=== PATIENT | male | born 1960 | race Caucasian/White ===

== ENCOUNTER 2020-12-29 11:13 | Emergency (ER) | payer MEDICAID, SELFPAY ==
[2020-12-29] VITALS (12 sets, daily range): BP systolic 127–142; BP diastolic 65–92; PULSE 72–93; RESP 18–30; TEMP 36.6; O2SAT 93–98
--- NOTE | ~2020-12-29 | CT_ITS ---
EXAMINATION: CT abdomen pelvis w con DATE: 12/29/2020 13:08 INDICATION: Left flank pain. TECHNIQUE: Computed tomography (CT) of the abdomen and pelvis was performed with 100 mL Omnipaque 350 intravenous contrast. Automated exposure control and iterative reconstruction technique were employe d. The dose-length product was 1286.83 mGy-cm. COMPARISON: None. FINDINGS: The visualized portions of the lung bases demonstrate mild atelectasis. No pleural effusion . The heart size is normal. No pericardial effusion. There is mild wall thickening of the distal esop hagus. The liver and spleen are normal. There is a gallstone in the gallbladder, which is normal in s ize. The pancreas, adrenal glands, and kidneys are normal. The prostate is moderately enlarged. There is diverticulosis of the colon without evidence of diverticulitis. There are no dilated loops of bow el. The appendix is not visualized. There are no pathologically enlarged lymph nodes. There is no sunshine e intraperitoneal fluid. There is a small right inguinal hernia containing fat. There is fat strandin g at the root of the small bowel mesentery. There is severe lumbar spondylosis and moderate thoracic spondylosis. IMPRESSION: 1. Fat stranding at the root of the small bowel mesentery, consistent with edema versus inflammation/ scarring (mesenteric panniculitis). 2. Wall thickening of the distal esophagus, likely esophagitis. 3. Small right inguinal hernia containing fat. Reviewed, dictated and finalized at location A. IMPRESSION: 1. Fat stranding at the root of the small bowel mesentery, consistent with ethan a versus inflammation/scarring (mesenteric panniculitis). 2. Wall thickening of the distal esophagus, likely esophagitis. 3. Small right inguinal hernia containing fat.
--- NOTE | ~2020-12-29 | XR_ITS ---
XR chest 2V DATE: 12/29/2020 13:13 INDICATION: Dyspnea, cough TECHNIQUE: 2 views COMPARISON: None FINDINGS: Normal heart size. No hilar or mediastinal enlargement. No pulmonary infiltrate or consolidation, pleural effusion or pulmonary vascular congestion or pneumo thorax. 12 mm calcified gallstone overlying the upper anterior abdomen. Included skeletal structures are unremarkable. IMPRESSION: No active cardiopulmonary disease Cholelithiasis Reviewed, dictated and finalized at location B.
--- NOTE | 2020-12-29 11:21 | ECG_ITS ---
Measurements Intervals [place] Rate: 76 P: 77 [place]: 193 QRS: -25 QRSD: 90 T: 78 QT: 366 QTc: 412 Interpretive Statements SINUS RHYTHM BORDERLINE R WAVE PROGRESSION, ANTERIOR LEADS BORDERLINE ST-T WAVE ABNORMALITY- HIGH LATERAL LEADS BORDERLINE ECG Electronically Signed On 12-29-2020 11:45:33 CDT by Salomon Estevez D.O.
[2020-12-29] MEDS: SODIUM CHLORIDE 0.9% IV 1,000 ML 999 ML IV CONT (11:37)
--- NOTE | 2020-12-29 11:38 | ED.WEAKNESS ---
HPI - Weakness General Chief complaint: Weakness Stated complaint: ambulance Time Seen by Provider: 12/29/20 11:21 Source: patient Mode of arrival: EMS Limitations: no limitations History of Present Illness HPI Narrative: 60-year-old man with a history of coronary artery disease, hypertension, and smoking brought to the emergency department today after he called them for weakness. He has had weakness, nausea, vomiting, fever and more recently left-sided abdominal pain. He states he has had some mild intermittent diarrhea. He states last night he was walking home from the [employer] store, had some dizziness and passed out. He states that he was unconscious but spontaneously regained his consciousness, got up and walked home. MD Complaint: generalized weakness and lack of energy Onset (ago): day(s) (5) Duration: constant and progressively worsening Location: generalized Migration: none Severity: moderate Relieving factors: none Exacerbating factors: none Associated symptoms: fever/chills, nausea/vomiting and shortness of breath Related Data Home Medications Medication Instructions Recorded Confirmed hydrochlorothiazide 12.5 mg PO DAILY 12/29/20 12/29/20 lisinopril 40 mg PO DAILY 12/29/20 12/29/20 Allergies Allergy/AdvReac Type Severity Reaction Status Date / Time No Known Allergies Allergy Verified 12/29/20 11:33 Review of Systems Review of Systems: All systems reviewed & are unremarkable except as noted in HPI and below Constitutional: Constitutional: Denies chills, Reports fatigue, Reports fever(s) and Reports weakness Eyes: Eyes: Denies change in vision and Denies photophobia ENT: Denies dysphagia, Denies nasal congestion and Denies sore throat Cardiovascular: Cardiovascular: Denies chest pain and Denies radiating jaw, neck or arm pain Respiratory: Respiratory: Denies cough, Reports dyspnea and Denies wheezing Gastrointestinal: Gastrointestinal: Reports abdominal pain, Reports diarrhea, Reports nausea and Reports vomiting Genitourinary: Genitourinary: Denies hematuria, Denies dysuria and Denies urinary frequency Musculoskeletal: Musculoskeletal: Reports back pain, Denies arthralgias and Denies joint swelling Integumentary/Breasts: Skin/Breast: Denies pruritus, Denies erythema and Denies rash Neurologic: Reports vertigo, Reports dizziness and Reports syncope Endocrine: Endocrine: Denies polydipsia and Denies polyuria Hematologic/Lymphatic: Hematologic/Lymphatic: Denies easy bleeding and Denies easy bruising Allergic/Immunologic: Allergic/Immunologic: Denies lip swelling and Denies throat swelling PMFSH Past Medical History Medical History (Updated 12/29/20 @ 15:30 by Wyatt Snell MD) Hypertension Surgical History Surgical History (Updated 12/29/20 @ 11:44 by Wyatt Snell MD) H/O hand surgery right S/P appendectomy Social History Social History Smoking status: Current every day smoker Alcohol intake: current Alcohol use details: rarely Substance use type: marijuana Other substance usage details: rarely Living arrangements: with family Exam Const: General: alert Orientation/consciousness: patient oriented x3 Limitations: no limitations Other: mild acute distress, anxious. overweight HENMT: Head: normal to inspection Mouth: Yes moist mucous membranes Throat: posterior oropharynx normal Eyes: Conjunctivae: conjunctivae normal Pupils: Equal, round and reactive pupils present EOM: EOMs intact bilaterally Resp: Effort & Inspection: normal respiratory effort and tachypneic ( mild without accessory muscle use or retractions. Speaks in full sentence) Auscultation: clear to auscultation bilaterally, no rales, no rhonchi and no wheezes Cardio: Rate: regular rate Rhythm: regular rhythm Heart sounds: no murmurs Other: Distal pulses are full and symmetric. Extremities are warm dry and pink. GI:
[2020-12-29 11:47] LABS: Basophils Absolute Auto 0.08 K/mm3 (0.00-0.10); Basophils Percent Auto 0.7 % (0.0-1.0); Eosinophils Absolute Auto 0.52 K/mm3 (0.02-0.50); Eosinophils Percent Auto 4.4 % (1.0-6.0); Hematocrit 41.5 % (40.0-54.0); Immature Granulocyte Absolute 0.12 K/mm3 (0.00-0.00); Lymphocytes Absolute Auto 2.51 K/mm3 (1.10-4.50); Lymphocytes Percent Auto 21.4 % (18.0-42.0); Mean Corpuscular HGB Conc 33.7 g/dL (32.0-36.0); Mean Corpuscular Hemoglobin 29.1 pg (27.0-31.0); Mean Corpuscular Volume 86.3 fL (78.0-102.0); Mean Platelet Volume 10.6 fl (8.7-11.0); Monocytes Absolute Auto 0.74 K/mm3 (0.10-0.90); Monocytes Percent Auto 6.3 % (2.0-11.0); Neutrophils Absolute Auto 7.8 K/mm3 (1.7-7.2); Neutrophils Percent Auto 66.2 % (50.0-70.0); Platelet Count Result 250 K/mm3 (150-420); Red Blood Count 4.81 M/mm3 (4.70-6.10); Red Cell Distribution Width 15.5 % (11.6-14.4); White Blood Count 11.7 K/mm3 (4.8-10.8)
--- NOTE | 2020-12-29 11:55 | PC.NURSE ---
pt declines to provide urine sample at this time.
[2020-12-29 12:07] LABS: Lactic Acid Reflex 0.8 mmol/L (0.4-2.0)
[2020-12-29 12:11] LABS: Influenza Control Valid (Valid)
[2020-12-29 12:12] LABS: Add Urine Microscopic? YES; Appearance Urine Clear (Clear); Bilirubin Urine Negative (Negative); Blood Urine Negative (Negative); Color Urine Light Yellow (Yellow); Glucose Urine UA Negative (Negative); Ketones Urine Negative (Negative); Leukocyte Esterase Ur Trace LEU/UL (Negative); Nitrate Urine Negative (Negative); Protein Urine Negative (Negative); Urobilinogen Urine 0.2 mg/dL (0.2-1.0); pH Urine 5.5 (5.0-8.0)
[2020-12-29 12:14] LABS: Bacteria Urine Trace /hpf; Mucus Urine Few /lpf; RBC Urine None seen /hpf (0-2); Squamous Epithelial Cell Urine Few /hpf (Few); WBC Urine None seen /hpf (0-3)
[2020-12-29 12:14] LABS: Alanine Aminotransferase 30 U/L (16-63); Albumin Level 3.8 g/dL (3.4-5.0); Alkaline Phosphatase 79 U/L (46-116); Anion Gap 13 mmol/L (8-16); Aspartate Amino Transferase 21 U/L (15-37); Bilirubin,Total 0.4 mg/dL (0.00-1.00); Blood Urea Nitrogen 12 mg/dL (7-18); Calcium 9.3 mg/dL (8.5-10.1); Carbon Dioxide 21 mmol/L (21-32); Chloride 102 mmol/L (98-108); Estimated CRCL calculation 89 ml/min; Estimated Glomerular Filt Rate > 60; Glucose 110 mg/dL (70-99); Osmolality Calculated 282 mOsm/kg (285-295); Potassium 4.6 mmol/L (3.5-5.1); Sodium 136 mmol/L (136-145); Total Protein 7.4 g/dL (6.4-8.2)
[2020-12-29 12:19] LABS: Troponin I 50.6 ng/L (0.00-60.4)
[2020-12-29] MEDS: MORPHINE SULFATE (*CRX) 4 MG/ML INJ IV PUSH ×2 (12:23→13:52)
[2020-12-29] MEDS: ONDANSETRON INJ 4 MG/2 ML VIAL IV PUSH (12:23)
[2020-12-29 12:35] LABS: SARS-CoV-2 RNA PCR Negative (Negative)
--- NOTE | 2020-12-29 13:14 | PC.NURSE ---
pt refusing to wear bp cuff.
--- NOTE | 2020-12-29 14:38 | PC.NURSE ---
[id number] spoke with [facility] for consult
[2020-12-29] MEDS: NICOTINE (*PBKC) 14 MG PATCH 1 PATCH TRANSDERM (14:46)
--- NOTE | 2020-12-29 15:23 | PC.NURSE ---
Pt requesting to sign out ama, dr mcmullen aware. Dr mcmullen consulting gi at [facility].
== END 2020-12-29 15:50 | disposition home or self-care (01) ==
PROVIDERS: Emergency Provider Emergency Medicine
DX: K65.4 Sclerosing mesenteritis (principal); M54.6 Pain in thoracic spine; Z20.822 Contact with and (suspected) exposure to COVID-19
CPT/HCPCS: 36415; 71046; 74177; 80053; 81001; 83605; 84484; 85025; 87040; 87086; 87088; 87804; 93005; 96361; 96374; 96375; 96376; 99283; 99284; A9270; C9803; J2270; J2405; J7030; Q9967; U0003; U0005

== ENCOUNTER 2021-01-06 12:42 | Emergency (ER) | payer MEDICAID, SELFPAY ==
[2021-01-06 13:35] VITALS: BP 147/76; PULSE 77; RESP 16; TEMP 36.4; O2SAT 98
[2021-01-06] MEDS: BACLOFEN 10 MG TABLET 20 MG PO (14:25)
[2021-01-06] MEDS: DEXAMETHASONE 4 MG TABLET 16 MG PO (14:25)
[2021-01-06] MEDS: KETOROLAC (*BKC) 60 MG/2 ML VIAL IM (14:29)
--- NOTE | 2021-01-06 14:47 | ED.BACK ---
HPI - Back Pain/Injury General Chief Complaint: Back Pain/Injury Stated Complaint: back and side pain Time Seen by Provider: 01/06/21 13:40 Source: patient Mode of arrival: ambulatory Limitations: no limitations History of Present Illness HPI Narrative: Patient comes in with low back pain, severe, stabbing, with radiation of pain down his right leg. This started after moving a big pile of rocks yesterday, and has been ongoing since moving the rocks. Nothing has helped decrease the pain at home. No other associated signs of symptoms. MD elicited complaint: back pain Pertinent past history: prior back pain Onset (ago): hour(s) Timing: constant Severity: severe Quality: sharp Location: lumbar spine Exacerbating factors: movement Relieving factors: none Context: while lifting Associated symptoms: denies other symptoms Related Data Home Medications Medication Instructions Recorded Confirmed hydrochlorothiazide 12.5 mg PO DAILY 12/29/20 01/06/21 lisinopril 40 mg PO DAILY 12/29/20 01/06/21 Allergies Allergy/AdvReac Type Severity Reaction Status Date / Time No Known Allergies Allergy Verified 12/29/20 11:33 Review of Systems Constitutional: Constitutional: Reports no additional constitutional complaints Eyes: Eyes: Reports no additional eye complaints ENT: Reports system reviewed and no additional complaints, except as documented Cardiovascular: Cardiovascular: Reports no additional cardiovascular complaints Respiratory: Respiratory: Reports no additional respiratory complaints Gastrointestinal: Gastrointestinal: Reports no additional gastrointestinal complaints Genitourinary: Genitourinary: Reports no additional male genitourinary complaints Musculoskeletal: Musculoskeletal: Reports no additional musculoskeletal complaints Integumentary/Breasts: Skin/Breast: Reports system reviewed and no additional complaints, except as docu Neurologic: Reports system reviewed and no additional complaints, except as documented Psychiatric: Psychiatric: Reports no additional psychiatric complaints Endocrine: Endocrine: Reports no additional endocrine complaints Hematologic/Lymphatic: Hematologic/Lymphatic: Reports no additional hematologic/lymphatic complaints Allergic/Immunologic: Allergic/Immunologic: Reports no additional allergic/immunologic complaints [facility] Past Medical History Medical History Hypertension Surgical History Surgical History H/O hand surgery right S/P appendectomy Family History Family History Mother Diabetes mellitus Social History Social History Smoking status: Current every day smoker Alcohol intake: current Alcohol use details: rarely Substance use type: marijuana Other substance usage details: rarely Exam Const: General: no acute distress Orientation/consciousness: patient oriented x3 HENMT: Head: normal to inspection Ears: TM's normal bilaterally General nose exam: Normal nares present Mouth: Yes Normal oral and palatal mucosa present Throat: posterior oropharynx normal Eyes: Conjunctivae: conjunctivae normal Neck: Neck: normal visual inspection Chest: Chest palpation & inspection: normal inspection of the chest Resp: Effort & Inspection: normal respiratory effort Auscultation: clear to auscultation bilaterally Cardio: Rate: regular rate Rhythm: regular rhythm GI: GI Palp: Yes Soft to palpation (nontender) Auscultation: normal bowel sounds : Male General Exam: Yes normal external exam Back/Spine/Pelvis: Back: no CVA tenderness Skin: General skin exam: normal color Neuro: General: patient oriented x3 and moves all extremities Extrem: General: normal to inspection Psych: Appearance: grossly normal Mental Status: mental status rita
[2021-01-06 14:55] VITALS: RESP 15
== END 2021-01-06 15:04 | disposition home or self-care (01) ==
PROVIDERS: Emergency Provider Emergency Medicine; PCP Physician Assistant
DX: M54.9 Dorsalgia, unspecified (principal)
CPT/HCPCS: 96372; 99283; A9270; J1885; J8540

== ENCOUNTER 2021-02-01 14:45 | Emergency (ER) | payer MEDICAID, SELFPAY ==
--- NOTE | ~2021-02-01 | CT_ITS ---
EXAMINATION: CT abdomen pelvis w con DATE: 02/01/2021 17:13 INDICATION: Left upper quadrant abdominal pain, nausea and vomiting TECHNIQUE: Computed tomography (CT) of the abdomen and pelvis was performed with 100 cc Omnipaque 350 intravenous contrast. Automated exposure control and iterative reconstruction technique were employe d. Exam dose: 999.48 mGy-cm total exam DLP. COMPARISON: 12/29/2020 CT abdomen pelvis FINDINGS: The lung bases are clear of infiltrate or consolidation. Normal heart size. No pleural or p ericardial effusion. There is fluid distention and prominent uniform circumferential soft tissue thickening of the include d distal esophagus,, suggesting gastroesophageal reflux and esophagitis. There is diffuse hepatic steatosis. No hepatic space-occupying mass lesion. Approximately 14 mm galls tone. No gallbladder wall thickening or pericholecystic fluid or fat stranding. No bile duct or pancr eatic duct dilatation. No pancreatic mass lesion or calcification. Normal splenic size. Normal morphology of the adrenal glands. No renal mass lesion. No urinary tract calculus or hydroureteronephrosis. There is prostate enlargement. The urinary bladder is unremarkable. Small fat-containing right inguinal hernia. There is atherosclerotic calcification but normal caliber of the abdominal aorta. No intraperitoneal or retroperitoneal or pelvic mass lesion or adenopathy or ascites is evident. There is diverticulosis of left and right colon; no CT evidence of diverticulitis. No bowel obstructi on or small or large bowel wall thickening, pneumatosis or intraperitoneal free air. Prominent multilevel degenerative disc disease of the lumbar spine with associated retrolisthesis at L2-3, L3-4 and L5-S1. No suspicious osteolytic or osteoblastic lesions are noted. IMPRESSION: Prominent circumferential soft tissue thickening of the distal esophageal wall and fluid distention of the distal esophagus, suggesting gastroesophageal reflux and esophagitis Hepatic steatosis Cholelithiasis Diverticulosis of the colon Prostate enlargement Reviewed, dictated and finalized at Location [facility]. Reviewed, dictated and finalized at location A. IMPRESSION: Prominent circumferential soft tissue thickening of the distal eso phageal wall and fluid distention of the distal esophagus, suggesting gastroeso phageal reflux and esophagitis Hepatic steatosis Cholelithiasis Diverticulosis of the colon Prostate enlargement
--- NOTE | ~2021-02-01 | XR_ITS ---
XR shoulder RT min 2V DATE: 02/01/2021 15:55 INDICATION: Right shoulder pain for 5 months after injury TECHNIQUE: 4 views COMPARISON: None FINDINGS: No fracture or dislocation, periosteal reaction or bone destruction is detected. There is m inimal calcification at the humeral insertion of the rotator cuff tendon, which may be consistent wit h mild calcific tendinitis. IMPRESSION: Mild calcific tendinitis of the rotator cuff Reviewed, dictated and finalized at location A.
--- NOTE | ~2021-02-01 | XR_ITS ---
EXAMINATION: XR chest 2V DATE: 02/01/2021 15:55 INDICATION: Central chest pain. Shortness of breath. TECHNIQUE: Frontal and lateral views of the chest were obtained. COMPARISON: Chest 2 views 12/29/2020, CT abdomen and pelvis 12/29/2020 FINDINGS: The chest demonstrates clear lungs without pneumonia, pleural effusion, or pneumothorax. Th e heart size is normal. IMPRESSION: 1. No acute cardiopulmonary disease. Reviewed, dictated and finalized at location B.
[2021-02-01 14:45] VITALS: BP 104/73; PULSE 107; RESP 20; TEMP 36.3; O2SAT 98
--- NOTE | 2021-02-01 14:50 | ED.ABDPAIN ---
HPI - Abdominal Pain General Chief Complaint: Abdominal Pain Stated Complaint: AMB Time Seen by Provider: 02/01/21 14:51 Source: patient and EMS Mode of arrival: EMS Limitations: no limitations History of Present Illness HPI narrative: 60-year-old man with a history of hypertension brought to the emergency department by EMS with a complaint of left upper abdomen pain, vomiting and being unable to keep anything down since this morning. He states he has had burning with urination. He denies fever, blood in his vomitus, recent cough or cold symptoms, shortness of breath, chest pain, and back pain. Patient denies prior evaluations for the symptoms however EMS states that he has been to the [facility] times for them. (Records from [facility] reveal he was there for testing but left before treatment was completed.) MD elicited complaint: abdominal pain Pertinent past history: other (Mesenteric panniculitis diagnosis 12/29/2020) Onset (ago): hour(s) (6-8) Pain Consistency: constant Location: [facility] Radiation: none Migration to: no migration Exacerbating factors: nothing Relieving factors: nothing Associated symptoms: nausea, vomiting and dysuria Related Data Home Medications Medication Instructions Recorded Confirmed hydrochlorothiazide 12.5 mg PO DAILY 12/29/20 02/01/21 lisinopril 40 mg PO DAILY 12/29/20 02/01/21 meloxicam 15 mg PO DAILY 02/01/21 02/01/21 metronidazole 500 mg PO BID 02/01/21 02/01/21 ondansetron HCl 4 mg PO PRN PRN 02/01/21 02/01/21 tamsulosin 0.4 mg PO DAILY 02/01/21 02/01/21 Allergies Allergy/AdvReac Type Severity Reaction Status Date / Time No Known Allergies Allergy Verified 12/29/20 11:33 Review of Systems Review of Systems: All systems reviewed & are unremarkable except as noted in HPI and below Constitutional: Constitutional: Denies chills and Denies fever(s) ENT: Denies nasal congestion and Denies sore throat Cardiovascular: Cardiovascular: Denies chest pain and Denies radiating jaw, neck or arm pain Respiratory: Respiratory: Denies cough, Denies dyspnea and Denies wheezing Gastrointestinal: Gastrointestinal: Reports abdominal pain, Denies diarrhea, Reports nausea and Denies vomiting Genitourinary: Genitourinary: Denies oliguria, Reports dysuria and Denies urinary frequency Musculoskeletal: Musculoskeletal: Denies arthralgias and Denies joint swelling Integumentary/Breasts: Skin/Breast: Denies pruritus, Denies erythema and Denies rash Neurologic: Denies vertigo, Denies dizziness and Denies syncope Hematologic/Lymphatic: Hematologic/Lymphatic: Denies easy bleeding and Denies easy bruising Allergic/Immunologic: Allergic/Immunologic: Denies lip swelling and Denies throat swelling PMFSH Past Medical History Medical History Hypertension Surgical History Surgical History H/O hand surgery right S/P appendectomy Family History Family History Mother Diabetes mellitus Social History Social History Smoking status: Current every day smoker Alcohol intake: current Alcohol use details: rarely Substance use type: marijuana Other substance usage details: rarely Exam Const: General: healthy appearing, no acute distress and alert Orientation/consciousness: patient oriented x3 Limitations: no limitations HENMT: Head: normal to inspection General nose exam: Normal nares present Face and sinus: normal facial exam Mouth: Yes moist mucous membranes Throat: posterior oropharynx normal Eyes: Conjunctivae: conjunctivae normal Pupils: Equal, round and reactive pupils present EOM: EOMs intact bilaterally Resp: Effort & Inspection: normal respiratory effort and not labored Auscultation: clear to auscultation bilaterally, no rales, no rhonchi and no w
--- NOTE | 2021-02-01 15:04 | ECG_ITS ---
Measurements Intervals [place] Rate: 88 P: [place]: 0 QRS: -11 QRSD: 94 T: 41 QT: 348 QTc: 421 Interpretive Statements ATRIAL FIBRILLATION BORDERLINE R WAVE PROGRESSION, ANTERIOR LEADS ABNORMAL ECG Electronically Signed On 02-01-2021 17:18:07 CDT by Salomon Estevez D.O.
[2021-02-01] MEDS: ONDANSETRON INJ 4 MG/2 ML VIAL IV PUSH (15:16)
[2021-02-01] MEDS: HYDROmorphone HCL INJ (*CRX) 2 MG/ML VIAL 0.5 MG IV PUSH ×2 (15:18→16:50)
[2021-02-01] MEDS: PANTOPRAZOLE SODIUM IV 40 MG VIAL IV PUSH (15:19)
[2021-02-01] MEDS: SODIUM CHLORIDE 0.9% IV 1,000 ML 999 ML IV CONT (15:19)
[2021-02-01 15:26] LABS: Basophils Absolute Auto 0.06 K/mm3 (0.00-0.10); Basophils Percent Auto 0.7 % (0.0-1.0); Hematocrit 38.1 % (40.0-54.0); Hemoglobin 12.8 g/dL (14.0-18.0); Immature Granulocyte Absolute 0.07 K/mm3 (0.00-0.00); Immature Granulocyte Percent A 0.8 % (0.0-0.0); Lymphocytes Absolute Auto 2.16 K/mm3 (1.10-4.50); Lymphocytes Percent Auto 25.2 % (18.0-42.0); Mean Corpuscular HGB Conc 33.6 g/dL (32.0-36.0); Mean Corpuscular Hemoglobin 29.4 pg (27.0-31.0); Mean Corpuscular Volume 87.4 fL (78.0-102.0); Mean Platelet Volume 10.7 fl (8.7-11.0); Monocytes Absolute Auto 0.67 K/mm3 (0.10-0.90); Monocytes Percent Auto 7.8 % (2.0-11.0); Neutrophils Absolute Auto 5.6 K/mm3 (1.7-7.2); Neutrophils Percent Auto 65.5 % (50.0-70.0); Platelet Count Result 218 K/mm3 (150-420); Red Blood Count 4.36 M/mm3 (4.70-6.10); Red Cell Distribution Width 15.2 % (11.6-14.4); White Blood Count 8.6 K/mm3 (4.8-10.8)
[2021-02-01 15:45] LABS: Add Urine Microscopic? YES; Appearance Urine Clear (Clear); Bilirubin Urine 1+ (Negative); Blood Urine Negative (Negative); Color Urine Yellow (Yellow); Glucose Urine UA Negative (Negative); Ketones Urine Trace (Negative); Leukocyte Esterase Ur Negative LEU/UL (Negative); Nitrate Urine Negative (Negative); Protein Urine Negative (Negative); Specific Grav Ur 1.025 (1.010-1.020); Urobilinogen Urine 0.2 mg/dL (0.2-1.0); pH Urine 5.5 (5.0-8.0)
[2021-02-01 15:46] LABS: Alanine Aminotransferase 38 U/L (16-63); Albumin Level 3.8 g/dL (3.4-5.0); Alkaline Phosphatase 66 U/L (46-116); Anion Gap 14 mmol/L (8-16); Aspartate Amino Transferase 31 U/L (15-37); Bilirubin,Total 0.7 mg/dL (0.00-1.00); Blood Urea Nitrogen 29 mg/dL (7-18); Calcium 8.6 mg/dL (8.5-10.1); Carbon Dioxide 21 mmol/L (21-32); Chloride 100 mmol/L (98-108); Estimated Glomerular Filt Rate 51; Glucose 83 mg/dL (70-99); Lipase 123 U/L (73-393); Osmolality Calculated 284 mOsm/kg (285-295); Potassium 4.1 mmol/L (3.5-5.1); Sodium 135 mmol/L (136-145); Total Protein 7.3 g/dL (6.4-8.2); Troponin I 58.9 ng/L (0.00-60.4)
[2021-02-01 15:48] LABS: Lactic Acid Reflex 0.7 mmol/L (0.4-2.0)
[2021-02-01 15:50] LABS: Bacteria Urine 3+ /hpf; RBC Urine 0-2 /hpf (0-2); Squamous Epithelial Cell Urine Rare /hpf (Few); WBC Urine 0-3 /hpf (0-3)
[2021-02-01 15:55] LABS: Amphetamine Screen Urine Negative (Negative); Barbiturate Screen Urine Negative (Negative); Benzodiazepines Screen Urine Positive (Negative); Cannabinoid Screen Urine Positive (Negative); Cocaine Screen Urine Negative (Negative); Methadone Screen Urine Negative (Negative); Opiate Screen Urine Negative (Negative); Phencyclidine Screen Urine Negative (Negative)
--- NOTE | 2021-02-01 16:10 | PC.NURSE ---
PT SITTING UP IN CHAIR AT BEDSIDE. WATCHING TV.
[2021-02-01 16:12] VITALS: BP 106/76; PULSE 80; RESP 20; O2SAT 97
--- NOTE | 2021-02-01 16:12 | PC.NURSE ---
REPORT TO LUIS RN
--- NOTE | 2021-02-01 16:46 | PC.NURSE ---
patient insist on more pain medications or will not participate with test. MD notified
--- NOTE | 2021-02-01 17:55 | PC.NURSE ---
for 3rd time patient at desk wanting something to eat. explained reviewing results
[2021-02-01 17:56] VITALS: BP 110/60; PULSE 80; RESP 18
--- NOTE | 2021-02-01 18:12 | ECG_ITS ---
Measurements Intervals [place] Rate: 77 P: 51 [place]: 199 QRS: -38 QRSD: 89 T: 63 QT: 370 QTc: 419 Interpretive Statements SINUS RHYTHM LEFT AXIS DEVIATION BORDERLINE R WAVE PROGRESSION, ANTERIOR LEADS BASELINE WANDER- AVR, AVL BORDERLINE ECG Electronically Signed On 02-02-2021 7:32:34 CDT by Salomon Estevez D.O.
[2021-02-01] MEDS: MAG HYDROX/ALUMINUM HYD/SIMETH 30 ML, PHENobarb/HYOSCY/ATROPINE/SCOP 32.4 MG, LIDOCAINE... PO (18:35)
[2021-02-01 18:52] VITALS: BP 111/70; PULSE 78; RESP 18; TEMP 36.6; O2SAT 98
--- NOTE | 2021-02-01 19:11 | PC.NURSE ---
during discharge patient states, this what I need to help show social security I can't work, I have missed several days of work I am just not healthy to hold a job
== END 2021-02-01 19:12 | disposition home or self-care (01) ==
PROVIDERS: Emergency Provider Emergency Medicine; PCP Physician Assistant
DX: K20.90 Esophagitis, unspecified without bleeding (principal)
CPT/HCPCS: 36415; 71046; 73030; 74177; 80053; 80307; 81001; 83605; 83690; 84484; 85025; 93005; 96361; 96374; 96375; 99283; 99284; A9270; C9113; J1170; J2405; J7030; Q9967

== ENCOUNTER 2021-02-05 15:03 | Emergency (ER) | payer MEDICAID, SELFPAY ==
--- NOTE | ~2021-02-05 | CT_ITS ---
EXAMINATION: CT brain wo con DATE: 02/05/2021 15:52 INDICATION: Syncope. TECHNIQUE: Computed tomography (CT) of the head was performed without intravenous contrast. The mA wa s adjusted according to patient size. Iterative reconstruction technique was employed. The dose-lengt h product was 756.67 mGy-cm. COMPARISON: None FINDINGS: There is no intracranial hemorrhage, acute infarction, or abnormal intracranial mass lesion . The ventricles are normal in size. The orbits are normal. There is mucosal thickening in the parana rico sinuses. There is a small left mastoid effusion. IMPRESSION: 1. Normal brain. Reviewed, dictated and finalized at location B. IMPRESSION: 1. Normal brain.
[2021-02-05 15:03] VITALS: BP 58/39; PULSE 92; RESP 14; TEMP 36.5; O2SAT 97
[2021-02-05] MEDS: SODIUM CHLORIDE 0.9% IV 1,000 ML 999 ML IV CONT ×2 (15:03→17:15)
--- NOTE | 2021-02-05 15:22 | ECG_ITS ---
Measurements Intervals [place] Rate: 90 P: 69 [place]: 191 QRS: 22 QRSD: 91 T: 50 QT: 353 QTc: 434 Interpretive Statements SINUS RHYTHM LOW QRS VOLTAGE IN LIMB LEADS BORDERLINE R WAVE PROGRESSION, ANTERIOR LEADS BORDERLINE ECG Electronically Signed On 02-05-2021 15:57:34 CDT by Salomon Estevez D.O.
[2021-02-05 15:49] LABS: Basophils Absolute Auto 0.04 K/mm3 (0.00-0.10); Basophils Percent Auto 0.6 % (0.0-1.0); Hematocrit 33.7 % (40.0-54.0); Hemoglobin 11.2 g/dL (14.0-18.0); Immature Granulocyte Percent A 1.5 % (0.0-0.0); Lymphocytes Percent Auto 15.3 % (18.0-42.0); Mean Corpuscular HGB Conc 33.2 g/dL (32.0-36.0); Mean Corpuscular Hemoglobin 29.6 pg (27.0-31.0); Mean Corpuscular Volume 88.9 fL (78.0-102.0); Mean Platelet Volume 10.4 fl (8.7-11.0); Monocytes Absolute Auto 0.68 K/mm3 (0.10-0.90); Monocytes Percent Auto 10.4 % (2.0-11.0); Neutrophils Absolute Auto 4.7 K/mm3 (1.7-7.2); Neutrophils Percent Auto 72.2 % (50.0-70.0); Platelet Count Result 206 K/mm3 (150-420); Red Blood Count 3.79 M/mm3 (4.70-6.10); Red Cell Distribution Width 15.5 % (11.6-14.4); White Blood Count 6.5 K/mm3 (4.8-10.8)
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
[2021-02-05 16:07] LABS: D Dimer 0.96 mg/L (0.19-0.50)
[2021-02-05 16:08] LABS: SARS-CoV-2 RNA PCR Negative (Negative)
[2021-02-05 16:11] LABS: Lactic Acid Reflex 1.2 mmol/L (0.4-2.0)
[2021-02-05 16:15] LABS: Alanine Aminotransferase 41 U/L (16-63); Albumin Level 3.1 g/dL (3.4-5.0); Alkaline Phosphatase 51 U/L (46-116); Anion Gap 12 mmol/L (8-16); Aspartate Amino Transferase 36 U/L (15-37); Bilirubin,Total 0.6 mg/dL (0.00-1.00); Blood Urea Nitrogen 34 mg/dL (7-18); Carbon Dioxide 23 mmol/L (21-32); Chloride 105 mmol/L (98-108); Estimated CRCL calculation 32 ml/min; Estimated Glomerular Filt Rate 24; Glucose 127 mg/dL (70-99); Magnesium 1.6 mg/dL (1.8-2.4); NT Pro B Type Natriuretic Pept 89 pg/mL (0-125); Osmolality Calculated 299 mOsm/kg (285-295); Potassium 4.2 mmol/L (3.5-5.1); Sodium 140 mmol/L (136-145); Total Protein 5.9 g/dL (6.4-8.2); Troponin I 60.2 ng/L (0.00-60.4)
[2021-02-05 16:23] LABS: Calcium 7.9 mg/dL (8.5-10.1)
[2021-02-05 16:39] LABS: Add Urine Microscopic? YES; Appearance Urine Clear (Clear); Bilirubin Urine 2+ (Negative); Blood Urine Negative (Negative); Color Urine Yellow (Yellow); Glucose Urine UA Negative (Negative); Ketones Urine 1+ (Negative); Leukocyte Esterase Ur Negative LEU/UL (Negative); Nitrate Urine Negative (Negative); Protein Urine 1+ (Negative); Specific Grav Ur >= 1.030 (1.010-1.020); pH Urine 5.5 (5.0-8.0)
[2021-02-05 16:47] LABS: RBC Urine 0-2 /hpf (0-2); Squamous Epithelial Cell Urine Rare /hpf (Few); WBC Urine 0-3 /hpf (0-3)
[2021-02-05 16:48] LABS: Bacteria Urine Trace /hpf
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
[2021-02-05 16:56] LABS: SARS-CoV-2 Ag Negative (Negative)
[2021-02-05 17:20] VITALS: BP 108/67; PULSE 84; RESP 14; TEMP 36.6; O2SAT 98
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
--- NOTE | 2021-02-05 19:54 | PC.NURSE ---
[id number] DEZ EASTMAN CONTACTED RN BACK AT THIS TIME FOR FURTHER INFORMATION ON PATIENTS NEEDS. DEZ EASTMAN SPOKE WITH PATIENT SEVERAL TIMES WELL.
--- NOTE | 2021-02-05 19:56 | PC.NURSE ---
PATIENT SIGNED OUT OF ED AMA FOR CONTINUED CARE OF IV FLUIDS AND CT SCAN OF CHEST, STATING I NEED TO GO HOME'. RISKS TO REFUSING SERVICES DISCUSSED WITH PATIENT BY ERP. BENEFITS TO CONTINUING CARE DISCUSSED WITH PATIENT BY ERP.
== END 2021-02-05 19:50 | disposition left against medical advice (07) ==
PROVIDERS: Emergency Provider Emergency Medicine
DX: I95.9 Hypotension, unspecified (principal); N17.9 Acute kidney failure, unspecified; F17.200 Nicotine dependence, unspecified, uncomplicated; Z20.822 Contact with and (suspected) exposure to COVID-19
CPT/HCPCS: 36415; 36600; 70450; 80053; 81001; 82805; 83605; 83735; 83880; 84484; 85025; 85380; 87426; 93005; 96360; 96361; 99283; 99284; C9803; J7030; U0003; U0005

== ENCOUNTER 2021-03-20 22:06 | Emergency (ER) | payer MEDICAID, SELFPAY ==
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
[2021-03-20 22:16] VITALS: BP 121/68; PULSE 90; RESP 20; TEMP 36.7; O2SAT 94
[2021-03-20] MEDS: KETOROLAC (*BKC) 60 MG/2 ML VIAL IM (22:34)
[2021-03-20 22:50] LABS: Amphetamine Screen Urine Negative (Negative); Barbiturate Screen Urine Negative (Negative); Benzodiazepines Screen Urine Negative (Negative); Cannabinoid Screen Urine Negative (Negative); Cocaine Screen Urine Negative (Negative); Methadone Screen Urine Negative (Negative); Opiate Screen Urine Negative (Negative); Phencyclidine Screen Urine Negative (Negative)
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
== END 2021-03-20 23:30 | disposition home or self-care (01) ==
PROVIDERS: Emergency Provider Emergency Medicine
DX: S02.2XXA Fracture of nasal bones, initial encounter for closed fracture (principal); I10 Essential (primary) hypertension; F17.200 Nicotine dependence, unspecified, uncomplicated; V50.0XXA Driver of pick-up truck or van injured in collision with pedestrian or animal in nontraffic accident, initial encounter
CPT/HCPCS: 70450; 70486; 73030; 80307; 96372; 99283; 99284; J1885